=== PATIENT | female | born 1955 | race African-American/Black ===

== ENCOUNTER 2017-07-18 13:33 | Emergency (ER) | payer MEDICARE, OTHER ==
[2017-07-18 14:04] LABS: Base Excess 2.6 mEq/L (-2 - +2); pH (venous) 7.39 (7.35-7.45)
[2017-07-18 14:05] LABS: Hemoglobin (Hb) 15.6 g/dL (11.7-16.0)
[2017-07-18 14:13] LABS: #Basophils 0.1 thou/uL (0.0-0.2); #Eosinphils 0.2 thou/uL (0.0-0.7); #Lymphocytes 1.4 thou/uL (1.20-3.40); #Monocytes 0.4 thou/uL (0.11-0.59); #Neutrophils 3.6 thou/uL (1.40-6.50); %Basophils 1.5 % (0.0-1.0); %Lymphocytes 24.5 % (21.0-51.0); %Monocytes 7.3 % (0.0-10.0); %Neutrophils 63.8 % (42.0-75.0); Mean Corpuscular Hemoglobin 27.7 pg (27.0-31.0); Mean Corpuscular Volume 79.1 fl (81.0-99.0); Mean Platelet Volume 7.9 fL (7.4-10.4); Platelet Count 245 thou/uL (130-400); RBC Distribution Width 12.9 % (11.5-14.5); Red Blood Cell (RBC) Count 5.41 mill/uL (4.20-5.40); White Blood Cell (WBC) Count 5.6 thou/uL (4.8-10.8)
[2017-07-18 14:22] LABS: ALT (SGPT) 11 U/L (8-55); AST (SGOT) 12 U/L (5-34); Albumin 4.2 g/dL (3.4-4.8); Alkaline Phosphatase 116 U/L (40-150); Anion Gap 15 mmol/L (10-20); BUN (Urea Nitrogen) 9 mg/dL (9.8-20.1); Bilirubin, Total 0.5 mg/dL (0.2-1.2); Calc. Creatinine Clearance 0 mL/min (70-130); Calcium 9.6 mg/dL (7.8-10.44); Carbon Dioxide 29 mmol/L (23-31); Chloride 97 mmol/L (98-107); Estimated GFR-MDRD 56; Glucose 487 mg/dL (80-115); Potassium 3.8 mmol/L (3.5-5.1); Protein, Total 7.2 g/dL (6.0-8.3); Sodium 137 mmol/L (136-145)
[2017-07-18 14:24] LABS: CKMB 1.2 ng/mL (0-6.6); Troponin I 0.023 ng/mL (< 0.028)
[2017-07-18] MEDS ORDERED: Insulin Regular 300 UNITS/3 ML VIAL ONE (14:28)
[2017-07-18] MEDS ORDERED: Metoprolol Tartrate 5 MG/5 ML VIAL ONE ×3 (14:28→14:58)
--- NOTE | 2017-07-18 14:36 | CT ---
CT BRAIN NONCONTRAST: Date: 07/18/17 HISTORY: 61-year-old female with sudden onset blindness. FINDINGS: There is no midline shift or any other mass effect. There is no evidence of acute intracranial hemor rhage, large cortical infarct, obstructive hydrocephalus, or extraaxial fluid collection. The calvar ium is intact. There are 2 tiny, subcentimeter, focal hypodensities: one at the head of the left caudate, and the ot her at the genu of the left internal capsule. There is associated minimal ex vacuo dilation of the fr ontal horn of the left lateral ventricle. IMPRESSION: 1. No acute intracranial findings. 2. Tiny old lacunar infarctions in the left caudate nucleus and at the genu of the left internal cap tonia. kinjal [] POS: PHILL
[2017-07-18 14:55] LABS: Bilirubin Negative (Negative); Blood, Urine Trace (Negative); Clarity Clear (Clear); Glucose, Urine (Dipstick) 500 mg/dL (Negative); Leukocyte Negative (Negative); Nitrite Negative (Negative); Protein, Urine (Dipstick) Trace mg/dL (Neg-Trace); Urobilinogen 0.2 mg/dL (0.2-1.0)
[2017-07-18 15:05] LABS: RBC/HPF 0-3 HPF (0-3); Squamous Epithelial 0-3 HPF (0-3); WBC/HPF 0-3 HPF (0-3)
[2017-07-18 15:06] LABS: Bacteria/HPF Rare-Few HPF (None Seen)
== END 2017-07-18 15:35 | disposition short-term general hospital (02) ==
LOC: BURERS 13:33
DX: I63.9 Cerebral infarction, unspecified (principal); H54.3 Unqualified visual loss, both eyes; I10 Essential (primary) hypertension; E11.9 Type 2 diabetes mellitus without complications
CPT/HCPCS: 36416; 70450; 80053; 81003; 81015; 82553; 82805; 84484; 85025; 93005; 96374; 96375; J1815

== ENCOUNTER 2017-07-24 19:00 | Inpatient (IN) | payer MEDICARE, OTHER ==
[2017-07-24] MEDS ORDERED: Carvedilol 3.125 MG TAB PO SCH (23:15)
[2017-07-25] MEDS ORDERED: Atorvastatin Calcium 40 MG TAB PO SCH ×2 (00:15→21:00)
[2017-07-25] MEDS ORDERED: Acetaminophen 325 MG TAB PO PRN (07:07)
[2017-07-25] MEDS ORDERED: Dextrose 50% Abboject 50 ML SYRINGE SLOW IVP PRN (07:10)
[2017-07-25] MEDS ORDERED: Dextrose 5% in Water 1,000 ML IV PRN (07:10)
[2017-07-25] MEDS: Amlodipine 5 MG TAB PO SCH (08:28)
[2017-07-25] MEDS: Lisinopril 20 MG TAB PO SCH (08:28)
[2017-07-25] MEDS: Aspirin 325 mg Enteric Coated Tablet PO SCH (08:28)
[2017-07-25] MEDS: Carvedilol 3.125 MG TAB PO SCH ×2 (08:28→18:17)
[2017-07-25] MEDS: Levemir Flexpen 100 UNITS/ML PEN SC SCH (08:29)
[2017-07-25] MEDS: HumaLOG 300 UNITS/3 ML VIAL SC PRN ×3 (08:34→18:18)
[2017-07-25] MEDS ORDERED: Carvedilol 3.125 MG TAB PO SCH (09:00)
[2017-07-25 15:40] VITALS: BMI 27.1
[2017-07-25] MEDS: Atorvastatin Calcium 40 MG TAB PO SCH (21:26)
[2017-07-26] MEDS: Levemir Flexpen 100 UNITS/ML PEN SC SCH (09:09)
[2017-07-26] MEDS: HumaLOG 300 UNITS/3 ML VIAL SC PRN ×4 (09:10→22:12)
[2017-07-26] MEDS: Amlodipine 5 MG TAB PO SCH ×2 (09:11→09:31)
[2017-07-26] MEDS: Aspirin 325 mg Enteric Coated Tablet PO SCH (09:11)
[2017-07-26] MEDS: Lisinopril 20 MG TAB PO SCH (09:12)
[2017-07-26] MEDS: Carvedilol 3.125 MG TAB PO SCH ×2 (09:12→17:58)
--- NOTE | 2017-07-26 18:13 | HP ---
DATE OF ADMISSION: 07/24/2017 REASON FOR TRANSFER TO ALF: Rehabilitation status post cerebrovascular accident. HISTORY OF PRESENT ILLNESS: The patient is a 61-year-old female with a history of u ncontrolled, noncompliant diabetes mellitus as well as uncontrolled, noncompliant, hypertension who u jeannieally lives in the [facility], but was visiting family and friends in [facility] who began to notice acute dizziness and visual changes with weakness. She was seen at [facility] and diagnosed with acute CVA. MRI of the brain at that time showed acute or subacute lacunar infarcts in the brain stem, specifically in the upper tad as well as moderate chronic ischemic white matter changes. MRA of the brain showed multifocal stenosis of the bilateral posterior cerebral art eries and superior cerebellar arteries. She also had a carotid Doppler which was negative for a sign ificant stenosis and an echocardiogram which showed ejection fraction of 55-60% with some diastolic d ysfunction. Hemoglobin A1c at admission was at 15.2 and she had a cholesterol fasting with an LDL of 138, triglycerides 99. The patient was stable and had some slight improvement in her dizziness as w ell as her visual changes, but still was extremely unsteady in gait and had some overall weakness and high risk for falls because the patient previously lived alone. It was deemed appropriate to transf er to [facility] for physical therapy and occupational therapy as well as cont inued education on need for medication compliance. PAST MEDICAL HISTORY: Hypertension, diabetes with a history of medication noncompliance. PAST SURGICAL HISTORY: None. HOME MEDICATIONS: Apparently patient was not taking any of her previously prescribed home medication s. ALLERGIES: CLINDAMYCIN reaction type unknown. FAMILY HISTORY: Significant for serious heart disease, hypertension, diabetes. No previous family h istory of stroke. SOCIAL HISTORY: The patient denies alcohol, tobacco or social drug use. She is a [employer] and she had previously been living independently. REVIEW OF SYSTEMS: At this time, patient denies any significant weight changes, no recent fevers or chills. She has had blurry vision with the dizziness as described in HPI. She denies any chest pain or shortness of breath, no fevers, chills or night sweats. No recent diarrhea reported. No abdomin al pain. No dysuria, hematuria, or change in urinary frequency. No significant increased back pain or lower extremity pain. The patient denies any recent rashes. The patient denies depression. PHYSICAL EXAMINATION: GENERAL: -[place] female lying in bed with no signs of distress. VITAL SIGNS: Blood pressure was 148/72, respiratory rate 16, pulse was 82. HEENT: Extraocular movements are intact. Patient did report some decreased vision in the left later al field area, mainly related to the left eye visual field. Oropharynx, mucous membranes were moist. No exudate, discharge or lesions. NECK: Supple, no masses palpated, no bruits auscultated. CHEST: Clear to auscultation bilaterally without rales or wheezes. HEART: Regular rate and rhythm without murmurs, rubs or gallops. ABDOMEN: Soft, nontender, nondistended, no masses were palpated. EXTREMITIES: Show no cyanosis, clubbing or edema. NEUROLOGIC: Speech was fluent and clear. Cranial nerves were appropriate except for the left homony mous hemianopia. The right eye had some difficulty with medial and nasally deviation. Motor strengt h showed a sensation appropriate and motor strength showed no unilateral symptoms. ASSESSMENT AND PLAN: 1. Status post cerebrovascular accident. Plan will be to initiate physical therapy and occupational therapy and have discharge planning. Patient would like to be discharged to home. We will see how she does with her gait training. 2. History of hypertension, noncompliance. The patient was placed on Coreg and Norvasc. We will fo llow her blood pressure. 3. History of diabetes mellitus with poor compliance. Educate the patient on the need to be complia nt with her medications for hypertension and diabetes. Otherwise, she is high risk for further compl ications. She will need to establish with a primary care physician and would consider in addition to aspirin for stroke prevention to start medications for cholesterol lowering. This was discussed wit h the patient in detail. She will be placed on Levemir or Lantus 20 units daily, and an insulin slid ing scale will be initiated. 4. Deep venous thrombosis prophylaxis. Patient will be placed on SCDs until she is fully ambulatory .
[2017-07-26] MEDS: Atorvastatin Calcium 40 MG TAB PO SCH (22:12)
[2017-07-27] MEDS: Levemir Flexpen 100 UNITS/ML PEN SC SCH (09:00)
[2017-07-27] MEDS: Aspirin 325 mg Enteric Coated Tablet PO SCH (09:00)
[2017-07-27] MEDS: Amlodipine 5 MG TAB PO SCH (09:00)
[2017-07-27] MEDS: Lisinopril 20 MG TAB PO SCH (09:00)
[2017-07-27] MEDS: Carvedilol 3.125 MG TAB PO SCH ×2 (09:10→18:17)
[2017-07-27] MEDS: HumaLOG 300 UNITS/3 ML VIAL SC PRN ×2 (09:15→13:01)
[2017-07-27] MEDS ORDERED: metFORMIN 500 MG TAB PO SCH (13:00)
[2017-07-27] MEDS: metFORMIN 500 MG TAB PO SCH (13:01)
[2017-07-27] MEDS: Atorvastatin Calcium 40 MG TAB PO SCH (20:46)
[2017-07-28] MEDS: metFORMIN 500 MG TAB PO SCH (08:39)
[2017-07-28] MEDS: Aspirin 325 mg Enteric Coated Tablet PO SCH (08:40)
[2017-07-28] MEDS: Amlodipine 5 MG TAB PO SCH (08:40)
[2017-07-28] MEDS: Lisinopril 20 MG TAB PO SCH (08:40)
[2017-07-28] MEDS: Carvedilol 3.125 MG TAB PO SCH ×2 (08:41→17:22)
[2017-07-28] MEDS: Levemir Flexpen 100 UNITS/ML PEN SC SCH (08:41)
[2017-07-28] MEDS: HumaLOG 300 UNITS/3 ML VIAL SC PRN ×4 (08:44→21:41)
[2017-07-28] MEDS: Atorvastatin Calcium 40 MG TAB PO SCH (21:41)
[2017-07-29] MEDS: Aspirin 325 mg Enteric Coated Tablet PO SCH (08:53)
[2017-07-29] MEDS: Carvedilol 3.125 MG TAB PO SCH ×2 (08:53→18:24)
[2017-07-29] MEDS: metFORMIN 500 MG TAB PO SCH (08:53)
[2017-07-29] MEDS: Lisinopril 20 MG TAB PO SCH (08:54)
[2017-07-29] MEDS: Amlodipine 5 MG TAB PO SCH (08:54)
[2017-07-29] MEDS: Levemir Flexpen 100 UNITS/ML PEN SC SCH (08:55)
[2017-07-29] MEDS: HumaLOG 300 UNITS/3 ML VIAL SC PRN ×3 (08:56→18:24)
[2017-07-29] MEDS: Atorvastatin Calcium 40 MG TAB PO SCH (20:56)
[2017-07-30] MEDS: metFORMIN 500 MG TAB PO SCH ×2 (08:56→18:09)
[2017-07-30] MEDS: Carvedilol 3.125 MG TAB PO SCH ×2 (08:56→18:09)
[2017-07-30] MEDS: Lisinopril 20 MG TAB PO SCH (08:57)
[2017-07-30] MEDS: Aspirin 325 mg Enteric Coated Tablet PO SCH (08:57)
[2017-07-30] MEDS: Amlodipine 5 MG TAB PO SCH (08:57)
[2017-07-30] MEDS: Levemir Flexpen 100 UNITS/ML PEN SC SCH (08:58)
[2017-07-30] MEDS: HumaLOG 300 UNITS/3 ML VIAL SC PRN ×2 (12:52→21:45)
[2017-07-30] MEDS: Atorvastatin Calcium 40 MG TAB PO SCH (20:44)
[2017-07-31] MEDS: metFORMIN 500 MG TAB PO SCH ×2 (09:24→17:53)
[2017-07-31] MEDS: Carvedilol 3.125 MG TAB PO SCH ×2 (09:24→17:53)
[2017-07-31] MEDS: Aspirin 325 mg Enteric Coated Tablet PO SCH (09:24)
[2017-07-31] MEDS: Amlodipine 5 MG TAB PO SCH (09:25)
[2017-07-31] MEDS: Levemir Flexpen 100 UNITS/ML PEN SC SCH (09:25)
[2017-07-31] MEDS: Lisinopril 20 MG TAB PO SCH (09:25)
[2017-07-31] MEDS: HumaLOG 300 UNITS/3 ML VIAL SC PRN ×2 (13:11→21:16)
[2017-07-31] MEDS: Atorvastatin Calcium 40 MG TAB PO SCH (21:15)
[2017-08-01] MEDS: metFORMIN 500 MG TAB PO SCH ×2 (09:08→17:56)
[2017-08-01] MEDS: Aspirin 325 mg Enteric Coated Tablet PO SCH (09:08)
[2017-08-01] MEDS: Carvedilol 3.125 MG TAB PO SCH ×2 (09:08→17:56)
[2017-08-01] MEDS: Amlodipine 5 MG TAB PO SCH (09:12)
[2017-08-01] MEDS: Lisinopril 20 MG TAB PO SCH (09:13)
[2017-08-01] MEDS: HumaLOG 300 UNITS/3 ML VIAL SC PRN ×2 (09:15→13:43)
[2017-08-01] MEDS: Levemir Flexpen 100 UNITS/ML PEN SC SCH (09:16)
[2017-08-01] MEDS: Atorvastatin Calcium 40 MG TAB PO SCH (20:53)
[2017-08-02] MEDS: Carvedilol 3.125 MG TAB PO SCH ×2 (08:26→17:48)
[2017-08-02] MEDS: Amlodipine 5 MG TAB PO SCH (08:27)
[2017-08-02] MEDS: Aspirin 325 mg Enteric Coated Tablet PO SCH (08:27)
[2017-08-02] MEDS: Lisinopril 20 MG TAB PO SCH (08:27)
[2017-08-02] MEDS: metFORMIN 500 MG TAB PO SCH ×2 (08:27→17:48)
[2017-08-02] MEDS: HumaLOG 300 UNITS/3 ML VIAL SC PRN ×3 (08:29→17:51)
[2017-08-02] MEDS: Levemir Flexpen 100 UNITS/ML PEN SC SCH (08:29)
[2017-08-02] MEDS: Atorvastatin Calcium 40 MG TAB PO SCH (20:32)
[2017-08-03 05:52] LABS: Anion Gap 11 mmol/L (10-20); BUN (Urea Nitrogen) 16 mg/dL (9.8-20.1); Calc. Creatinine Clearance 73 mL/min (70-130); Calcium 8.9 mg/dL (7.8-10.44); Carbon Dioxide 29 mmol/L (23-31); Chloride 105 mmol/L (98-107); Estimated GFR-MDRD 69; Glucose 218 mg/dL (80-115); Potassium 3.7 mmol/L (3.5-5.1); Sodium 141 mmol/L (136-145)
[2017-08-03] MEDS: Aspirin 325 mg Enteric Coated Tablet PO SCH (08:30)
[2017-08-03] MEDS: metFORMIN 500 MG TAB PO SCH ×2 (08:30→18:03)
[2017-08-03] MEDS: Carvedilol 3.125 MG TAB PO SCH ×2 (08:31→18:03)
[2017-08-03] MEDS: Amlodipine 5 MG TAB PO SCH (08:31)
[2017-08-03] MEDS: Lisinopril 20 MG TAB PO SCH (08:32)
[2017-08-03] MEDS: Levemir Flexpen 100 UNITS/ML PEN SC SCH (08:33)
[2017-08-03] MEDS: HumaLOG 300 UNITS/3 ML VIAL SC PRN (08:34)
[2017-08-03] MEDS: Atorvastatin Calcium 40 MG TAB PO SCH (21:52)
[2017-08-04] MEDS: HumaLOG 300 UNITS/3 ML VIAL SC PRN ×3 (07:55→20:51)
[2017-08-04] MEDS: Amlodipine 5 MG TAB PO SCH (07:57)
[2017-08-04] MEDS: Lisinopril 20 MG TAB PO SCH (07:57)
[2017-08-04] MEDS: Aspirin 325 mg Enteric Coated Tablet PO SCH (07:57)
[2017-08-04] MEDS: metFORMIN 500 MG TAB PO SCH ×2 (07:58→17:22)
[2017-08-04] MEDS: Carvedilol 3.125 MG TAB PO SCH ×2 (09:59→17:22)
[2017-08-04] MEDS: Levemir Flexpen 100 UNITS/ML PEN SC SCH (10:00)
[2017-08-04] MEDS: Atorvastatin Calcium 40 MG TAB PO SCH (20:28)
[2017-08-05] MEDS: Carvedilol 3.125 MG TAB PO SCH ×2 (08:35→16:32)
[2017-08-05] MEDS: metFORMIN 500 MG TAB PO SCH ×2 (08:35→16:32)
[2017-08-05] MEDS: Amlodipine 5 MG TAB PO SCH (08:36)
[2017-08-05] MEDS: Aspirin 325 mg Enteric Coated Tablet PO SCH (08:37)
[2017-08-05] MEDS: Lisinopril 20 MG TAB PO SCH (08:37)
[2017-08-05] MEDS: Levemir Flexpen 100 UNITS/ML PEN SC SCH (08:40)
[2017-08-05] MEDS: HumaLOG 300 UNITS/3 ML VIAL SC PRN (08:41)
[2017-08-05] MEDS: Atorvastatin Calcium 40 MG TAB PO SCH (20:27)
[2017-08-06] MEDS: Carvedilol 3.125 MG TAB PO SCH ×2 (08:32→16:59)
[2017-08-06] MEDS: Lisinopril 20 MG TAB PO SCH (08:33)
[2017-08-06] MEDS: Aspirin 325 mg Enteric Coated Tablet PO SCH (08:33)
[2017-08-06] MEDS: metFORMIN 500 MG TAB PO SCH ×2 (08:33→16:59)
[2017-08-06] MEDS: Amlodipine 5 MG TAB PO SCH (08:33)
[2017-08-06] MEDS: HumaLOG 300 UNITS/3 ML VIAL SC PRN ×2 (08:34→17:57)
[2017-08-06] MEDS: Levemir Flexpen 100 UNITS/ML PEN SC SCH (08:34)
[2017-08-06] MEDS: Atorvastatin Calcium 40 MG TAB PO SCH (20:49)
[2017-08-07] MEDS: Carvedilol 3.125 MG TAB PO SCH ×2 (09:20→17:40)
[2017-08-07] MEDS: Lisinopril 20 MG TAB PO SCH (09:21)
[2017-08-07] MEDS: Amlodipine 10 MG TAB PO SCH (09:21)
[2017-08-07] MEDS: metFORMIN 500 MG TAB PO SCH ×2 (09:21→17:40)
[2017-08-07] MEDS: Aspirin 325 mg Enteric Coated Tablet PO SCH (09:22)
[2017-08-07] MEDS: Levemir Flexpen 100 UNITS/ML PEN SC SCH (09:22)
[2017-08-07] MEDS: HumaLOG 300 UNITS/3 ML VIAL SC PRN ×2 (12:57→17:41)
[2017-08-07] MEDS: Atorvastatin Calcium 40 MG TAB PO SCH (21:22)
[2017-08-08 06:30] VITALS: TEMP 98.2
[2017-08-08] MEDS: Levemir Flexpen 100 UNITS/ML PEN SC SCH (08:25)
[2017-08-08] MEDS: HumaLOG 300 UNITS/3 ML VIAL SC PRN ×2 (08:27→13:46)
[2017-08-08] MEDS: Lisinopril 20 MG TAB PO SCH (08:32)
[2017-08-08] MEDS: Amlodipine 10 MG TAB PO SCH (08:33)
[2017-08-08] MEDS: Carvedilol 3.125 MG TAB PO SCH ×2 (08:33→16:53)
[2017-08-08] MEDS: Aspirin 325 mg Enteric Coated Tablet PO SCH (08:33)
[2017-08-08] MEDS: metFORMIN 500 MG TAB PO SCH ×2 (08:33→16:53)
[2017-08-08 18:04] VITALS: BP 139/76
== END 2017-08-08 17:45 | disposition home or self-care (01) | DRG 947 ==
LOC: BURMED 19:00
PROVIDERS: ADMIT Family Medicine; ATTEND Family Medicine
DX: R53.1 Weakness (principal); I63.9 Cerebral infarction, unspecified; E11.65 Type 2 diabetes mellitus with hyperglycemia; Z79.4 Long term (current) use of insulin; Z91.14 Patient's other noncompliance with medication regimen; I10 Essential (primary) hypertension; Z63.8 Other specified problems related to primary support group
CPT/HCPCS: 36415; 36416; 80048; G8978-GP-CI; G8979-GP-CH; G8987-GO-CJ; G8988-GO-CI; G9168-GN-CK; G9169-GN-CJ; J1815